=== PATIENT | male | born 1975 | race Caucasian/White ===

== ENCOUNTER 2019-07-27 08:59 | Emergency (ER) | payer OTHER ==
[~2019-07-27] VITALS: Ht 177.8 cm; Wt 109.1 kg
[2019-07-27 09:00] VITALS: BP 146/92
[2019-07-27] MEDS ORDERED: LISI-538 PO (09:08)
[2019-07-27] MEDS ORDERED: GLUCTAB2 PO (09:08)
[2019-07-27] MEDS ORDERED: CRES5TAB PO (09:08)
[2019-07-27] MEDS ORDERED: LIDOCAINE 2% MDV 20 ML VIAL SC ONE (09:15)
[2019-07-27] MEDS ORDERED: ADACEL/BOOSTRIX VACCINE (DIPHTH/PERTUSS/ACELL/TETANUS)0.5ML SYR (90715) IM ONE (10:00)
[2019-07-27] MEDS ORDERED: CEPHALEXIN 500 MG CAP PO ONE (10:00)
[2019-07-27] MEDS ORDERED: KEFL500C17 PO (10:14)
--- NOTE | 2019-07-27 10:20 | REP ---
Clinical: Trauma. Technique: AP, lateral, bilateral oblique views of the right second digit. Findings: No acute fracture dislocation. No foreign body. Impression: No fracture / dislocation or foreign body. Electronically Signed by Bernardo Bernal MD 07/27/2019 10:12 A
== END 2019-07-27 10:22 | disposition home or self-care (01) ==
LOC: M ED 08:59
DX: S61.210A Laceration without foreign body of right index finger without damage to nail, initial encounter (principal); W23.1XXA Caught, crushed, jammed, or pinched between stationary objects, initial encounter; Y92.89 Other specified places as the place of occurrence of the external cause; Y93.9 Activity, unspecified; Y99.0 Civilian activity done for income or pay